=== PATIENT | male | born 1985 | race Caucasian/White ===

== ENCOUNTER → 2019-02-23 | Outpatient (CLI) | payer OTHER ==
--- NOTE | 2019-02-23 10:10 | US ---
EXAMINATION TYPE: US liver DATE OF EXAM: 02/23/2019 COMPARISON: NONE CLINICAL HISTORY: R74.8 Elevated LFTs,. EXAM MEASUREMENTS: Liver Length: 12.8 cm Gallbladder Wall: 0.2 cm CBD: 0.4 cm Right Kidney: 10.3 x 3.7 x 4.2 cm Pancreas: not well visualized due to midline bowel gas Liver: wnl Gallbladder: No stones seen Evidence for sonographic Lin's sign: No CBD: wnl Right Kidney: No hydronephrosis or masses seen IMPRESSION: Hepatic echotexture appears homogeneous and unremarkable despite the known elevated liver enzymes. No suspicious mass is seen. Pancreas is obscured.
== END | disposition home or self-care (01) ==
LOC: RADUSWWP 07:29
PROVIDERS: ATTEND Family Medicine
DX: R74.8 Abnormal levels of other serum enzymes (principal)
CPT/HCPCS: 76705

== ENCOUNTER 2020-02-06 01:49 | Emergency (ER) | payer OTHER ==
[2020-02-06] MEDS ORDERED: SODIUM CHLORIDE 0.9% 500 ML 500 ML IV ONE (02:17)
--- NOTE | 2020-02-06 02:19 | ED ---
General Adult HPI - General Chief complaint: Headache Stated complaint: Headache Time Seen by Provider: 02/06/20 02:10 Source: patient, RN notes reviewed, old records reviewed Mode of arrival: ambulatory Limitations: no limitations - History of Present Illness Initial comments: 34-year-old male presenting for evaluation of headache. Patient's symptoms began approximately 6 PM, initially there was some numbness to the second third and fourth digit on the right hand. He states this was like his hand was asleep. He then approximately 30 minutes later developed a headache which was frontal in nature. Initially was a 2 out of 10, gradually progressed to 6 out of 10. He took 2 extra strength Tylenol and his headache is now currently 2 out of 10. He had called telemedicine doctor who recommended he present to the emergency department. He has no previous migraine history. No fever. No cough. No URI symptoms. No vomiting. - Related Data Allergies Allergy/AdvReac Type Severity Reaction Status Date / Time cefaclor [From Ceclor] Allergy Unknown Verified 02/06/20 02:06 Review of Systems ROS Statement: Those systems with pertinent positive or pertinent negative responses have been documented in the HPI. ROS Other: All systems not noted in ROS Statement are negative. Past Medical History Past Medical History: No Reported History History of Any Multi-Drug Resistant Organisms: None Reported Additional Past Surgical History / Comment(s): dental surgery Past Psychological History: No Psychological Hx Reported Smoking Status: Never smoker Past Alcohol Use History: Occasional Past Drug Use History: None Reported General Exam Limitations: no limitations General appearance: alert, in no apparent distress Head exam: Present: atraumatic, normocephalic Eye exam: Present: normal appearance, PERRL ENT exam: Present: normal exam Neck exam: Present: normal inspection. Absent: tenderness, meningismus Respiratory exam: Present: normal lung sounds bilaterally. Absent: respiratory distress, wheezes, rales Cardiovascular Exam: Present: regular rate, normal rhythm GI/Abdominal exam: Present: soft. Absent: distended, tenderness, guarding, rebound Extremities exam: Present: normal inspection, normal capillary refill. Absent: pedal edema Neurological exam: Present: alert, oriented X3, CN II-XII intact. Absent: motor sensory deficit Psychiatric exam: Present: normal affect, normal mood Skin exam: Present: warm, dry, intact. Absent: cyanosis, diaphoretic Course Vital Signs 02/06/20 02/06/20 02:02 02:40 Temperature 97.9 F Pulse Rate 80 71 Respiratory 16 18 Rate Blood Pressure 158/81 132/79 O2 Sat by Pulse 99 98 Oximetry EKG Findings - EKG Comments: EKG Findings:: EKG: Normal sinus rhythm with sinus arrhythmia, rate of 76, ND interval 148, QRS duration 96, QTC 425, no ST segment elevation Medical Decision Making - Medical Decision Making 34-year-old male with gradual onset headache, and paresthesia. Patient has a nonfocal neurologic exam. Workup was initiated, he has a mild leukocytosis of uncertain etiology with no other infectious symptoms. Headache is minimal at the time my evaluation. He does not require any medications while in the emergency department. CT is performed which is negative for intracranial hemorrhage or mass effect. Patient is given strict return parameters. He will follow-up with his primary care physician. He will return with worsening or changing symptoms. - Lab Data Result diagrams: 02/06/20 02:36 02/06/20 02:36 Lab Results 02/06/20 02/06/20 Range/Units 02:36 02:36 WBC 14.9 H (3.8-10.6) k/uL RBC 5.47 (4.30-5.90) m/uL Hgb 16.2 (13.0-17.5) gm/dL Hct 46.7 (39.0-53.0) % MCV 85.4 (80.0-100.0) fL MCH 29.6 (25.0-35.0) pg MCHC 34.6 (31.0-37.0) g/dL RDW 12.2 (11.5-15.5) % Plt Count 261 (150-450) k/uL MPV 6.9 Neutrophils % 74 % Lymphocytes % 18 % Monocytes % 4 % Eosinophils % 3 % Basophils % 1 % Neutrophils # 11.1 H (1.3-7.7) k/uL Lymphocytes # 2.7 (1.0-4.8) k/uL Monocytes # 0.5 (0-1.0) k/uL Eosinophils # 0.4 (0-0.7) k/uL Basophils # 0.1 (0-0.2) k/uL Sodium 138 (137-145) mmol/L Potassium 4.5 (3.5-5.1) mmol/L Chloride 102 (98-107) mmol/L Carbon Dioxide 27 (22-30) mmol/L Anion Gap 9 mmol/L BUN 14 (9-20) mg/dL Creatinine 0.94 (0.66-1.25) mg/dL Est GFR (CKD-EPI)AfAm >90 (>60 ml/min/1.73 sqM) Est GFR (CKD-EPI)NonAf >90 (>60 ml/min/1.73 sqM) Glucose 109 H (74-99) mg/dL Calcium 10.2 (8.4-10.2) mg/dL Total Bilirubin 1.2 (0.2-1.3) mg/dL AST 29 (17-59) U/L ALT 17 (4-49) U/L Alkaline Phosphatase 63 (38-126) U/L Total Protein 8.3 H (6.3-8.2) g/dL Albumin 4.9 (3.5-5.0) g/dL Disposition Clinical Impression: Headache, Paresthesia Disposition: HOME SELF-CARE Condition: Good Instructions (If sedation given, give patient instructions): Acute Headache (ED), Paresthesia (ED) Is patient prescribed a controlled substance at d/c from ED?: No Referrals: Nikhil Canales MD [Primary Care Provider] - 1-2 days Time of Disposition: 03:42
[2020-02-06 02:51] LABS: Basophils # (A) 0.1 k/uL (0-0.2); Basophils % (A) 1 %; Eosinophils # (A) 0.4 k/uL (0-0.7); Eosinophils % (A) 3 %; HCT 46.7 % (39.0-53.0); HGB 16.2 gm/dL (13.0-17.5); Lymphocytes # (A) 2.7 k/uL (1.0-4.8); Lymphocytes % (A) 18 %; MCH 29.6 pg (25.0-35.0); MCHC 34.6 g/dL (31.0-37.0); MCV 85.4 fL (80.0-100.0); Mean Platelet Volume 6.9; Monocytes # (A) 0.5 k/uL (0-1.0); Monocytes % (A) 4 %; Neutrophils # (A) 11.1 k/uL (1.3-7.7); Neutrophils % (A) 74 %; Platelet Count 261 k/uL (150-450); RBC 5.47 m/uL (4.30-5.90); RDW 12.2 % (11.5-15.5); WBC 14.9 k/uL (3.8-10.6)
[2020-02-06 03:01] VITALS: RESP 18
[2020-02-06 03:02] LABS: ALT 17 U/L (4-49); AST 29 U/L (17-59); African American GFR (CKD) >90 (>60 ml/min/1.73 sqM); Albumin 4.9 g/dL (3.5-5.0); Alkaline Phosphatase 63 U/L (38-126); Anion Gap 9 mmol/L; Blood Urea Nitrogen 14 mg/dL (9-20); Calcium 10.2 mg/dL (8.4-10.2); Carbon Dioxide 27 mmol/L (22-30); Chloride 102 mmol/L (98-107); Glucose 109 mg/dL (74-99); Non-African American GFR(CKD) >90 (>60 ml/min/1.73 sqM); Potassium 4.5 mmol/L (3.5-5.1); Sodium 138 mmol/L (137-145); Total Bilirubin 1.2 mg/dL (0.2-1.3); Total Protein 8.3 g/dL (6.3-8.2)
[2020-02-06 03:29] LABS: INR 1.1 (<1.2); Partial Thromboplastin Time 24.6 sec (22.0-30.0); Prothrombin Time 10.9 sec (9.0-12.0)
--- NOTE | 2020-02-06 03:30 | CT ---
EXAM: CT Head Without Intravenous Contrast CLINICAL HISTORY: ITS.REASON CT Reason: Headache, right hand numbness TECHNIQUE: Axial computed tomography images of the head/brain without intravenous contrast. CTDI is 49.27 mGy and DLP is 995.80 mGy-cm. This CT exam was performed using one or more of the following dose reduction techniques: automated exposure control, adjustment of the mA and/or kV according to patient size, and/or use of iterative reconstruction technique. COMPARISON: No relevant prior studies available. FINDINGS: Brain: No hemorrhage or mass effect. Ventricles: No hydrocephalus. Bones/joints: Unremarkable. Soft tissues: Unremarkable. Sinuses: Unremarkable. Mastoid air cells: Clear. IMPRESSION: No acute hemorrhage, hydrocephalus, or mass effect.
[2020-02-06 03:52] VITALS: BP 129/79; PULSE 70; TEMP 98
== END 2020-02-06 03:52 | disposition home or self-care (01) ==
LOC: EC 01:49
DX: R51.9 Headache, unspecified (principal); R20.2 Paresthesia of skin; D72.829 Elevated white blood cell count, unspecified; Z88.1 Allergy status to other antibiotic agents
CPT/HCPCS: 36415; 70450; 80053; 85025; 85610; 85730; 93005; 96360; 99285